=== PATIENT | female | born 1995 | race Caucasian/White ===

== ENCOUNTER 2021-07-13 05:42 | Inpatient (IN) | payer OTHER ==
[~2021-07-13] VITALS: Ht 157.5 cm; Wt 64.4 kg
[2021-07-13 06:30] LABS: RED BLOOD COUNT 3.55 M/UL (4.00-5.10); WHITE BLOOD COUNT 10.3 K/UL (4.5-11.0)
[2021-07-13] MEDS ORDERED: FAMOTIDINE20 MG PO (06:56)
[2021-07-13] MEDS ORDERED: VITAMIN B-625 MG PO (06:56)
[2021-07-13] MEDS ORDERED: UNISOM25 MG PO (06:57)
[2021-07-13] MEDS ORDERED: PRENATAL VITAM1 EAC3 PO (06:58)
[2021-07-13] MEDS ORDERED: ASPIRIN CHEWABL81 MG PO (06:58)
[2021-07-13] MEDS ORDERED: COLACE 100MG C100 MG PO (08:00)
[2021-07-13] MEDS ORDERED: IBUPROFEN600 MG PO (08:00)
[2021-07-14 06:44] LABS: HEMOGLOBIN 8.5 gm/dl (12.3-15.3)
== END 2021-07-14 13:49 | disposition home or self-care (01) | DRG 807 ==
LOC: GENOP 05:42 → OB 06:18
PROVIDERS: ADMIT Obstetrics & Gynecology
PROC: 10E0XZZ Delivery of Products of Conception, External Approach (ICD-10-PCS; principal; 2021-07-13)
PROC: 0HQ9XZZ Repair Perineum Skin, External Approach (ICD-10-PCS; 2021-07-13)
PROC: 4A1HXCZ Monitoring of Products of Conception, Cardiac Rate, External Approach (ICD-10-PCS; 2021-07-13)
DX: O70.0 First degree perineal laceration during delivery (principal); Z37.0 Single live birth; Z3A.37 37 weeks gestation of pregnancy; Z20.822 Contact with and (suspected) exposure to COVID-19
CPT/HCPCS: 81001; 85014; 85018; 85025; 90471; 90686; 90715; J2590; J7120; U0002